=== PATIENT | female | born 1945 | race Caucasian/White ===

== ENCOUNTER 2024-03-11 21:13 | Outpatient (CLI) | payer MEDICARE | END 2024-03-11 21:14 | disposition critical access hospital (66) | LOC: EMS 21:13 | DX: M25.561 Pain in right knee (principal); M25.461 Effusion, right knee; R03.0 Elevated blood-pressure reading, without diagnosis of hypertension | CPT/HCPCS: A0425; A0429 ==

== ENCOUNTER 2024-03-11 21:43 | Emergency (ER) | payer MEDICARE, OTHER ==
--- NOTE | 2024-03-11 21:57 | ED Physician Documentation ---
PD HPI LOWER EXT INJURY - Stated complaint Stated Complaint: R KNEE PX - Chief complaint Chief Complaint: Trauma Ext - History obtained from History obtained from: Patient - History of Present Illness PD HPI LOW EXT INJURY LOCATION: Right, Knee Type of injury: Other (swelling and pain noted 2 days ago) Where injury occurred: Other (went to the store the day prior) Timing - onset: How many days ago (3) Timing - duration: Days (3) Timing - details: Gradual onset, Still present Improved by: Rest, Immobilization Worsened by: Moving, Palpating Associated symptoms: Swelling Contributing factors: No: Anticoagulated, Prior ortho surgery, Prosthetic joint, Work related Similar symptoms before: Has not had sx before Recently seen: Not recently seen - Additional information Additional information: 79-year-old Melissa Marquez presents to the emergency department with pain in her right knee along with some swelling. The pain has been present for about 2 days and she was not able to get out of bed to get water today and so she called the ambulance to come to the hospital. She has had a prior injury to this knee requiring an injection of rooster comb and warm laser. She does not feel that she had any significant fever associated with this but she was in enough pain that she took some oxycodone. Review of Systems Constitutional: denies: Fever Ears: denies: Ear pain Nose: denies: Congestion Throat: denies: Sore throat Respiratory: denies: Cough GI: denies: Vomiting PD PAST MEDICAL HISTORY - Past Medical History Past Medical History: Yes Musculoskeletal: Gout - Past Surgical History Past Surgical History: Yes /[employer]: Other - Present Medications Home Medications: Ambulatory Orders Medication Instructions Recorded Confirmed Neomycin/Polymyx/Hc Otic Drops 4 drops RIGHTEAR TID 10 Days #1 07/04/18 [Cortisporin Ear Susp] bottle allopurinoL [Allopurinol] 07/04/18 - Allergies Allergies/Adverse Reactions: Allergies Allergy/AdvReac Type Severity Reaction Status Date / Time Sulfa (Sulfonamide AdvReac Unknown Verified 07/04/18 12:04 Antibiotics) - Social History Does the pt smoke?: No Smoking Status: Never smoker Does the pt drink ETOH?: Yes Does the pt have substance abuse?: No - Immunizations Immunizations are current?: Yes - POLST Patient has POLST: No PD ED PE NORMAL - Vitals Vital signs reviewed: Yes (hypertensive ) - General General: Alert and oriented X 3, No acute distress, Well developed/nourished - HEENT HEENT: Atraumatic, PERRL, EOMI - Respiratory Respiratory: No respiratory distress - Derm Derm: Normal color, Warm and dry, No rash - Extremities Extremities: No deformity, Other (There is some swelling noted to the right knee she is able to move it through a range of motion with some pain and she has pain to palpation of the medial aspect of the knee.) - Neuro Neuro: Alert and oriented X 3, confectionery cooker 2-12 intact, No motor deficit, No sensory deficit, Normal speech Eye Opening: Spontaneous Motor: Obeys Commands Verbal: Oriented GCS Score: 15 - Psych Psych: Normal mood, Normal affect Results - Vitals Vitals: Vital Signs - 24 hr 03/11/24 03/12/24 21:44 00:33 Temperature 36.6 C Heart Rate 83 60 Respiratory 20 16 Rate Blood Pressure 172/65 H 170/54 H O2 Saturation 98 94 Oxygen O2 Source Room air - Rads (name of study) Right knee Relevant Findings:: Prelim report reviewed (Impression: Moderate knee joint effusion without displaced fracture. Mild to moderate tricompartmental osteoarthritis. Kellgren-Omero scale of osteoarthritis: 2. Dystrophic ossification versus loose joint bodies along the lateral patella. ), EMP independent interpretation of test, See rad report Procedures - Arthrocentesis Joint: Knee Preparation: Sterile prep and drape Anesthesia: Lidocaine 1% Fluid: Other (no fluid) Aftercare: Dressing applied, No complications, Other (FAILED TO OBTAIN FLUID on 2 on medial and lateral attempt.), Patient tolerated well PD Medical Decision Making - ED course Complexity details: reviewed results, re-evaluated patient, considered differential, d/w patient ED course: 79-year-old female with acute swelling to the right knee has pain with ambulation. She has a history of gout but I did not find her pain to be exquisite in any way and the swelling was not overt. There was some swelling mostly to the medial aspect of the knee and I was unable to obtain any fluid from the joint space which I obviously entered with a large needle. The patient had improvement with the use of Toradol and dexamethasone was able to ambulate at the bedside. The patient was administered water to drink. Departure - Departure Disposition: 01 Home, Self Care Clinical Impression: Knee pain, right Qualifiers: Chronicity: acute Qualified Code(s): M25.561 - Pain in right knee Condition: Stable Instructions: ED Knee Pain [facility] Follow-Up: Pilo Pisano MD [Provider Admit Priv/Credential] - Comments: Melissa, today we does show that there is some arthritis in your knee we did not find significant fluid in your joint. I suspect your pain is mostly related to arthritis and overuse of the joint preceding onset of symptoms. We have given you a dose of dexamethasone which is a anti-inflammatory steroid that should help for about 2 days. A follow-up with orthopedics is indicated and [place] Forms: PCP List Discharge Date/Time: 03/12/24 01:35
[2024-03-11] MEDS: LIDOCAINE 1% 2 ML VIAL SUBQ STA (22:02)
--- NOTE | 2024-03-11 22:20 | XRAY Report ---
PROCEDURE: Knee 4+V RT INDICATIONS: swelling and pain TECHNIQUE: 4 views of the knee(s) were acquired. COMPARISON: None. FINDINGS: Bones: No fractures or dislocations. No suspicious bony lesions. Dystrophic calcifications versus loose joint bodies along the lateral patella. Tricompartmental joint space narrowing with associated osteophytosis. Soft tissues: Moderate knee joint effusion. No suspicious soft tissue calcifications or masses. IMPRESSION: Moderate knee joint effusion without displaced fracture. Mild to moderate tricompartmental osteoarthritis. Kellgren-Omero scale of osteoarthritis: 2. Dystrophic ossifications versus loose joint bodies along the lateral patella. Reviewed by: Evelio Chun MD on 03/11/2024 10:18 PM PDT Approved by: Evelio Chun MD on 03/11/2024 10:18 PM PDT Station ID: [id number]
[2024-03-12] MEDS: KETOROLAC 30 MG/ML VIAL IM STA (00:06)
[2024-03-12] MEDS: CHERRY SYRUP 10 ML UDC PO ONE (00:06)
[2024-03-12] MEDS: DEXAMETHASONE 10 MG/ML VIAL PO STA (00:06)
[2024-03-12 00:40] VITALS: BP 170/54; O2SAT 94
== END 2024-03-12 01:35 | disposition home or self-care (01) ==
LOC: EDUNIT# → ED 21:43
DX: M25.561 Pain in right knee (principal); M17.11 Unilateral primary osteoarthritis, right knee
CPT/HCPCS: 20610; 73564; 96372; 99284; A9270